=== PATIENT | male | born 1940 | race African-American/Black ===

== ENCOUNTER 2024-02-25 12:35 | Emergency (ER) | payer MEDICARE, OTHER ==
[~2024-02-25] VITALS: Ht 175.3 cm; Wt 60.0 kg
[2024-02-25 12:49] VITALS: O2SAT 99
[2024-02-25 13:23] LABS: BASOPHILS % 0.9 % (0.0-2.0); DIFFERENTIAL COMMENT 0; HEMATOCRIT. 40.2 % (42.0-52.0); LYMPHOCYTES % 20.7 % (20.0-50.0); MEAN CORPUSCULAR HEMOGLOBIN 24.6 pg (28.0-32.0); MEAN CORPUSCULAR HGB CONC 32.5 g/dL (31.0-37.0); MEAN CORPUSCULAR VOLUME 75.8 fL (80.0-94.0); MEAN PLATELET VOLUME 7.7 fl (7.4-10.4); MONOCYTES % 12.4 % (2.0-8.0); PLATELET 195 x1000/uL (130-400); RED CELL DISTRIBUTION WIDTH 15.3 % (11.6-14.6); WHITE BLOOD COUNT 6.4 x1000/uL (4.5-11.0)
[2024-02-25 13:27] LABS: CHLORIDE 105 mEq/L (98-107); POTASSIUM 4.9 mEq/L (3.5-5.1); SODIUM 134 mEq/L (136-145)
[2024-02-25 13:28] LABS: CARBON DIOXIDE 24 mEq/L (21-32)
[2024-02-25 13:30] LABS: PARTIAL THROMBOPLASTIN TIME 28.5 sec (23.4-31.0); PROTHROMBIN TIME 11.3 sec (9.6-11.0)
[2024-02-25 13:33] LABS: CREATININE 1.1 mg/dL (0.6-1.3); GLUCOSE 132 mg/dL (70-105); UREA NITROGEN BLOOD 11 mg/dL (9-23)
[2024-02-25 16:06] LABS: CLARITY URINE CLOUDY (CLEAR); COLOR URINE RED (YELLOW); GLUCOSE URINE NEGATIVE (NEGATIVE); KETONES URINE NEGATIVE (NEGATIVE); LEUKOCYTE ESTERASE URINE 3+ (NEGATIVE); NITRITE URINE NEGATIVE (NEGATIVE); OCCULT BLOOD URINE 3+ (NEGATIVE); PROTEIN URINE 2+ (NEGATIVE); SPECIFIC GRAVITY URINE 1.009 (1.005-1.030); UROBILINOGEN URINE 0.2 E.U./dL (0.2-1.0)
[2024-02-25] MEDS: LIDOCAINE HCL 1% 20ML VIAL INFIL ONE (16:15)
[2024-02-25] MEDS: CEFTRIAXONE SODIUM 1G VIAL IM ONE (16:15)
[2024-02-25 16:26] LABS: BACTERIA URINE 2+; RBC URINE TNTC /hpf (0-2); SQUAMOUS EPITHELIAL CELL URINE 1+ /lpf (RARE/1+)
[2024-02-25 16:33] LABS: WBC URINE 25-50 /hpf (0-2)
[2024-02-25] MEDS ORDERED: CEFP200T13 MT (17:41)
[2024-02-25 19:10] VITALS: BP 159/86; PULSE 99; RESP 16; TEMP 98.2
== END 2024-02-25 19:40 | disposition home or self-care (01) ==
LOC: ER 12:35
DX: R33.9 Retention of urine, unspecified (principal)
CPT/HCPCS: 80048; 81003; 85025; 85610; 85730; 87086; 36415; 96372; 99283; J0696; J3490; Z7610

== ENCOUNTER 2024-11-04 12:49 | Emergency (ER) | payer MEDICARE, MEDICAID ==
[~2024-11-04] VITALS: Ht 160 cm; Wt 61.0 kg
[~2024-11-04 12:49] MED LIST: CEFP200T13 MT
[2024-11-04 12:58] VITALS: O2SAT 95
[2024-11-04 18:47] LABS: CLARITY URINE CLOUDY (CLEAR); COLOR URINE ORANGE (YELLOW); GLUCOSE URINE NEGATIVE (NEGATIVE); KETONES URINE NEGATIVE (NEGATIVE); LEUKOCYTE ESTERASE URINE 2+ (NEGATIVE); NITRITE URINE NEGATIVE (NEGATIVE); OCCULT BLOOD URINE 3+ (NEGATIVE); PROTEIN URINE 2+ (NEGATIVE); SPECIFIC GRAVITY URINE 1.016 (1.005-1.030)
[2024-11-04 19:03] LABS: BACTERIA URINE 2+; RBC URINE 15-25 /hpf (0-2); SQUAMOUS EPITHELIAL CELL URINE 1+ /lpf (RARE/1+)
[2024-11-04] MEDS ORDERED: CEFP200T14 MT (19:24)
[2024-11-04 22:13] VITALS: BP 110/65; PULSE 82; RESP 18; TEMP 36.6; O2SAT 98
== END 2024-11-04 22:20 | disposition home or self-care (01) ==
LOC: ER 12:49
DX: T83.018A Breakdown (mechanical) of other urinary catheter, initial encounter (principal); N39.0 Urinary tract infection, site not specified; E78.00 Pure hypercholesterolemia, unspecified; F03.90 Unspecified dementia, unspecified severity, without behavioral disturbance, psychotic disturbance, mood disturbance, and anxiety; Y92.89 Other specified places as the place of occurrence of the external cause
CPT/HCPCS: 51702; 81003; 99284